=== PATIENT | male | born 1995 | race African-American/Black ===

== ENCOUNTER 2018-10-11 08:20 | Emergency (ER) | payer BC, MEDICAID ==
[2018-10-11] MEDS: KETOROLAC 60 MG INJ IM (11:06)
== END 2018-10-11 11:10 | disposition home or self-care (01) ==
LOC: FTE 08:20
DX: R51 Headache (principal); J45.909 Unspecified asthma, uncomplicated
CPT/HCPCS: 96372; 99284-25; J1885